=== PATIENT | female | born 1945 | race Caucasian/White ===

== ENCOUNTER 2019-03-28 18:37 | Observation (INO) ==
[2019-03-28] MEDS ORDERED: IOPAMIDOL 100 ML BOTTLE IV ONE (18:38)
--- NOTE | 2019-03-28 18:58 | Emergency Department Note ---
Altered Mental Status HPI - General Chief Complaint: Altered Mental Status Stated Complaint: altered mental status Time Seen by Provider: 03/28/19 18:44 Source: patient Mode of arrival: ambulatory Limitations: no limitations - History of Present Illness HPI Narrative: 73-year-old female with altered mental status today. Apparently last seen normal approximately week ago. Her son reports that she called him confused and so he made her come in. She denies any shortness of breath fever chills nausea vomiting diarrhea or any other concerning new features. She does have chronic pain from fiber mild which she treats with Tylenol threes. She did have a headache today and this did help. She did not bring her medicine list and does not remember all her medical conditions. She is able to affirm what I am able to glean from the chart - Related Data Home Medications Medication Instructions Recorded Confirmed Acetaminophen W/Codeine #3 1 - 2 tab PO BIDP PRN 09/04/15 09/04/15 [Tylenol #3] Atenolol [Tenormin] 100 mg PO DAILY 09/04/15 09/04/15 Calcium Carbonate [Calcium] 500 mg PO DAILY 09/04/15 09/04/15 Cholecalciferol (Vitamin D3) 1,000 unit PO DAILY 09/04/15 09/04/15 [Vitamin D] Multivit,Th Iron,Other Min 1 each PO DAILY 09/04/15 09/04/15 [Complete Multivitamin] Omeprazole [PriLOSEC] 20 mg PO ACB 09/04/15 09/04/15 Simvastatin [Zocor] 40 mg PO HS 09/04/15 09/04/15 Triazolam [Halcion] 0.125 mg PO QHS 09/04/15 09/04/15 Venlafaxine HCl [Venlafaxine HCl 225 mg PO DAILY 09/04/15 09/04/15 ER] Allergies Allergy/AdvReac Type Severity Reaction Status Date / Time No Known Drug Allergies Allergy Verified 09/04/15 13:39 Review of Systems All systems ED: reviewed and negative except as stated. Past Medical History - Past Medical History Attestation: Yes: The following information was validated with the patient. Medical history: Reports: fibromyalgia, hypertension, other (Ischemic colitis). Denies: DM Surgical history ED: Reports: hysterectomy - Social History smoking status: Never smoker Physical Exam Normocephalic atraumatic. Conjunctive are clear sclerae white and icteric. Pupils equal round reactive to light. no nasal discharge or congestion. Oropharynx pink and moist. Neck is supple without lymphadenopathy thyromegaly. Heart is regular rate and rhythm no murmur appreciated. Lungs are clear to auscultation bilaterally without wheezes rales rhonchi or respiratory distress. Abdomen soft nontender nondistended. No peritoneal signs or guarding. No pedal edema. +2 radial pulse. Alert oriented x4 able to answer questions appropriately. Mild short-term memory deficit is noted but otherwise seems to be relatively sharp-that is she seems to have some mild forgetfulness but otherwise seems to be functioning well. Face is symmetrical I do not see any other focal neurologic deficit. She is able to stand walk sit down and move around the bed without any assistance or difficulty. Her speech is coherent I do not see any evidence of ataxia Limitations: no limitations Course Vital Signs Temperature 97.5 F 03/28/19 18:39 Pulse Rate 55 L 03/28/19 18:39 Respiratory Rate 14 03/28/19 18:39 Blood Pressure 155/80 03/28/19 18:39 Pulse Oximetry (%) 98 03/28/19 18:39 Temperature 97.5 F 03/28/19 18:39 Pulse Rate 59 L 03/28/19 21:35 Respiratory Rate 15 03/28/19 21:35 Blood Pressure 146/84 03/28/19 21:31 Pulse Oximetry (%) 98 03/28/19 21:35 Altered Mental Status - Lab Data Lab results reviewed: Yes I reviewed the patient's lab results. Result diagrams: 03/28/19 19:46 03/28/19 19:18 Lab Results 03/28/19 03/28/19 03/28/19 Range/Units 18:19 18:19 18:55 WBC (4.5-11.0) K/mcL RBC (4.00-5.20) M/mcL Hgb (12.0-15.0) g/dL Hct (36.0-48.0) % POC Hct (36.0-48.0) % MCV (80.0-100.0) fL MCH (26.0-34.0) pg MCHC (31.0-36.0) g/dL RDW (11.5-14.5) % Plt Count (140-440) K/mcL MPV (7.4-10.4) fL Gran % (38.0-78.0) % Lymph % (Auto) (15.5-49.0) % [place] % (Auto) (1.0-12.0) % Eos % (Auto) (0.0-7.0) % Baso % (Auto) (0.0-2.0) % Gran # (1.8-8.0) K/mcL Lymph # (Auto) (1.5-4.8) K/mcL [place] # (Auto) (0.1-0.9) K/mcL Eos # (Auto) (0.0-0.7) K/mcL Baso # (Auto) (0.0-0.3) K/mcL POC PT 12.6 (11.9-14.5) sec POC INR 1.1 (0.9-1.2) VBG Lactic Acid (0.5-2.0) mmol/L POC Sodium (133-145) mmol/L Sodium (133-145) mmol/L POC Potassium (3.3-5.1) mmol/L Potassium (3.3-5.1) mmol/L POC Chloride (96-108) mmol/L Chloride (96-108) mmol/L Carbon Dioxide (22-30) mmol/L POC Total CO2 (22-30) mmol/L Anion Gap (8-16) POC BUN (8-23) mg/dl BUN (8-23) mg/dl Creatinine (0.6-1.1) mg/dl POC Creatinine (0.6-1.1) mg/dl GFR Calculation Glucose (70-105) mg/dL POC Glucose (70-105) mg/dL Calcium (8.6-10.4) mg/dl POC WB Ioniz Calcium (1.16-1.32) mmol/L Total Bilirubin (0.0-1.0) mg/dL AST (0-37) U/l ALT (0-40) U/l Alkaline Phosphatase (39-117) U/L Ammonia (11-51) umol/L Total Creatine Kinase 41 (24-170) IU/L Troponin T < 0.01 (0-0.03) ng/ml Total Protein (5.9-8.4) gm/dL Albumin (3.2-5.2) gm/dL Globulin (2.2-3.7) gm/dL Albumin/Globulin Ratio (1.0-2.3) Urine Opiates Screen (NONDETECTED) Ur Oxycodone Screen (NONDETECTED) Urine Methadone Screen (NONDETECTED) Ur Barbiturates Screen (NONDETECTED) Ur Phencyclidine Scrn (NONDETECTED) Ur Amphetamines Screen (NONDETECTED) U Benzodiazepines Scrn (NONDETECTED) Urine Cocaine Screen (NONDETECTED) U Marijuana (THC) Screen (NONDETECTED) 03/28/19 03/28/19 03/28/19 Range/Units 19:18 19:46 19:46 WBC 9.5 (4.5-11.0) K/mcL RBC 4.12 (4.00-5.20) M/mcL Hgb 12.7 (12.0-15.0) g/dL Hct 38.9 (36.0-48.0) % POC Hct 40.0 (36.0-48.0) % MCV 94.4 (80.0-100.0) fL MCH 30.8 (26.0-34.0) pg MCHC 32.7 (31.0-36.0) g/dL RDW 14.9 H (11.5-14.5) % Plt Count 272 (140-440) K/mcL MPV 8.2 (7.4-10.4) fL Gran % 57.9 (38.0-78.0) % Lymph % (Auto) 35.7 (15.5-49.0) % [place] % (Auto) 6.1 (1.0-12.0) % Eos % (Auto) 0 (0.0-7.0) % Baso % (Auto) 0.3 (0.0-2.0) % Gran # 5.5 (1.8-8.0) K/mcL Lymph # (Auto) 3.4 (1.5-4.8) K/mcL [place] # (Auto) 0.6 (0.1-0.9) K/mcL Eos # (Auto) 0 (0.0-0.7) K/mcL Baso # (Auto) 0 (0.0-0.3) K/mcL POC PT (11.9-14.5) sec POC INR (0.9-1.2) VBG Lactic Acid 1.2 (0.5-2.0) mmol/L POC Sodium 139 (133-145) mmol/L Sodium 139 (133-145) mmol/L POC Potassium 4.2 (3.3-5.1) mmol/L Potassium 4.3 (3.3-5.1) mmol/L POC Chloride 104 (96-108) mmol/L Chloride 101 (96-108) mmol/L Carbon Dioxide 23 (22-30) mmol/L POC Total CO2 27 (22-30) mmol/L Anion Gap 15.0 (8-16) POC BUN 16 (8-23) mg/dl BUN 15 (8-23) mg/dl Creatinine 0.7 (0.6-1.1) mg/dl POC Creatinine 0.6 (0.6-1.1) mg/dl GFR Calculation 85 Glucose 98 (70-105) mg/dL POC Glucose 98 (70-105) mg/dL Calcium 9.7 (8.6-10.4) mg/dl POC WB Ioniz Calcium 1.18 (1.16-1.32) mmol/L Total Bilirubin 0.2 (0.0-1.0) mg/dL AST 19 (0-37) U/l ALT 17 (0-40) U/l Alkaline Phosphatase 102 (39-117) U/L Ammonia (11-51) umol/L Total Creatine Kinase (24-170) IU/L Troponin T (0-0.03) ng/ml Total Protein 7.5 (5.9-8.4) gm/dL Albumin 4.0 (3.2-5.2) gm/dL Globulin 3.5 (2.2-3.7) gm/dL Albumin/Globulin Ratio 1.1 (1.0-2.3) Urine Opiates Screen (NONDETECTED) Ur Oxycodone Screen (NONDETECTED) Urine Methadone Screen (NONDETECTED) Ur Barbiturates Screen (NONDETECTED) Ur Phencyclidine Scrn (NONDETECTED) Ur Amphetamines Screen (NONDETECTED) U Benzodiazepines Scrn (NONDETECTED) Urine Cocaine Screen (NONDETECTED) U Marijuana (THC) Screen (NONDETECTED) 03/28/19 03/28/19 Range/Units 19:46 20:20 WBC (4.5-11.0) K/mcL RBC (4.00-5.20) M/mcL Hgb (12.0-15.0) g/dL Hct (36.0-48.0) % POC Hct (36.0-48.0) % MCV (80.0-100.0) fL MCH (26.0-34.0) pg MCHC (31.0-36.0) g/dL RDW (11.5-14.5) % Plt Count (140-440) K/mcL MPV (7.4-10.4) fL Gran % (38.0-78.0) % Lymph % (Auto) (15.5-49.0) % [place] % (Auto) (1.0-12.0) % Eos % (Auto) (0.0-7.0) % Baso % (Auto) (0.0-2.0) % Gran # (1.8-8.0) K/mcL Lymph # (Auto) (1.5-4.8) K/mcL [place] # (Auto) (0.1-0.9) K/mcL Eos # (Auto) (0.0-0.7) K/mcL Baso # (Auto) (0.0-0.3) K/mcL POC PT (11.9-14.5) sec POC INR (0.9-1.2) VBG Lactic Acid (0.5-2.0) mmol/L POC Sodium (133-145) mmol/L Sodium (133-145) mmol/L POC Potassium (3.3-5.1) mmol/L Potassium (3.3-5.1) mmol/L POC Chloride (96-108) mmol/L Chloride (96-108) mmol/L Carbon Dioxide (22-30) mmol/L POC Total CO2 (22-30) mmol/L Anion Gap (8-16) POC BUN (8-23) mg/dl BUN (8-23) mg/dl Creatinine (0.6-1.1) mg/dl POC Creatinine (0.6-1.1) mg/dl GFR Calculation Glucose (70-105) mg/dL POC Glucose (70-105) mg/dL Calcium (8.6-10.4) mg/dl POC WB Ioniz Calcium (1.16-1.32) mmol/L Total Bilirubin (0.0-1.0) mg/dL AST (0-37) U/l ALT (0-40) U/l Alkaline Phosphatase (39-117) U/L Ammonia 12 (11-51) umol/L Total Creatine Kinase (24-170) IU/L Troponin T (0-0.03) ng/ml Total Protein (5.9-8.4) gm/dL Albumin (3.2-5.2) gm/dL Globulin (2.2-3.7) gm/dL Albumin/Globulin Ratio (1.0-2.3) Urine Opiates Screen Suspect positive A (NONDETECTED) Ur Oxycodone Screen None detected (NONDETECTED) Urine Methadone Screen None detected (NONDETECTED) Ur Barbiturates Screen None detected (NONDETECTED) Ur Phencyclidine Scrn None detected (NONDETECTED) Ur Amphetamines Screen None detected (NONDETECTED) U Benzodiazepines Scrn None detected (NONDETECTED) Urine Cocaine Screen None detected (NONDETECTED) U Marijuana (THC) Screen None detected (NONDETECTED) - Radiology Data Radiology results reviewed: Yes I reviewed the patient's radiology results. Radiologist Brendon Mckeon called me with CT report on the head. It looks like she is has a subacute stroke in the MCA territory-likely from this morning or yesterday or similar timeframe Chest x-ray shows no acute cardiopulmonary pathology CT angiogram of the head neck shows an incidentally noted left thyroid nodule and again noted CVA in the right MCA territory - EKG Data EKG attestation: Yes I reviewed and interpreted this EKG. EKG results narrative: EKG shows rate of 57 so sinus bradycardia without evidence of ischemia. Borderline left axis deviation. Low voltage in the precordial leads EKG shows normal: sinus rhythm Critical Care Time Critical Care Time: Yes Total Critical Care Time: 30 Attestation: Additional 30 minutes of vehicle care time in addition to the evaluation and management code. This included coordination of care including tele-stroke, reviewing studies, documentation and serial exams. I did take the time to answer the patient and family's questions. I was immediately available to the patient the entire time she was in the ER Disposition Pt seen by ATTORNEY GENERAL/PA only: No Clinical Impression: Receptive aphasia, Left thyroid nodule Altered mental status Qualifiers: Altered mental status type: unspecified Qualified Code(s): R41.82 - Altered mental status, unspecified CVA (cerebral vascular accident) Qualifiers: CVA mechanism: thrombosis Precerebral and cerebral artery: middle cerebral artery Laterality of affected vessel: right Qualified Code(s): I63.311 - Cerebral infarction due to thrombosis of right middle cerebral artery Summary: Work-up for mild confusion and forgetfulness which is out of character. Patient was last seen normal 1 week ago so at this point would not be stroke work-up but will order testing including laboratory CT scan and chest x-ray along with an EKG EKG unrevealing. CT scan of the head shows subacute stroke in the MCA territory. We will do NIH testing. Patient is out of the window for TPA as she was last seen normal 1 week ago and the stroke on CT scan is clearly subacute i.e. from this morning or yesterday. However we will get tele-stroke involved a nd see if there is anything else we need to do for her I discussed the situation with Dr. Mei the tele-stroke neurologist who advised me to go ahead and get CT angiogram of the head neck to see if she would be eligible for any further intervention. Her NIH score is 0. However she does continue to have some receptive aphasia/decreased language comprehension. Oftentimes you will have to repeat commands several times in several different ways to get her to comply however once she gets it she will follow commands. CTA shows nonocclusive stasis on the right MCA area. Incidentally noted left thyroid nodule. I rediscussed the case with Dr. Mei, I reviewed the CTA of the head neck wi th him and he agreed the patient should be admitted but this could be done locally with stroke work-up. No further intervention is indicated I then discussed the case with Dr. De Leon, our hospitalist, who agreed to accept the patient for further care and evaluation in the hospital. Transition orders written Disposition: Xfer As Inpt ([facility]) Condition: Critical Referrals: Tiana Dunn MD [Primary Care Provider] -
[2019-03-28] MEDS ORDERED: 0.9 % SODIUM CHLORIDE 1,000 ML IV SCH ×2 (19:00→23:26)
[2019-03-28 19:25] LABS: POC Blood Urea Nitrogen 16 mg/dl (8-23); POC CO2 27 mmol/L (22-30); POC Calcium, Ionized 1.18 mmol/L (1.16-1.32); POC Chloride 104 mmol/L (96-108); POC Creatinine 0.6 mg/dl (0.6-1.1); POC Glucose, Random 98 mg/dL (70-105); POC Potassium 4.2 mmol/L (3.3-5.1); POC Sodium 139 mmol/L (133-145)
--- NOTE | 2019-03-28 20:10 | Cat Scan Report ---
CLINICAL INFORMATION: Altered mental status COMPARISON: None. TECHNIQUE: Axial noncontrast-enhanced images through the brain. Sagittal and coronal reformatted images FINDINGS: No acute intracranial hemorrhage. No subdural hematoma. No subarachnoid hemorrhage. No intra-axial hemorrhage. There is low density in the posterior middle cerebral artery distribution. There is mild mass effect with effacement of overlying sulci. Appearance is consistent with acute nonhemorrhagic infarction (one day to 1 week). Appearance is not consistent with hyperacute infarction. There is no uncal herniation. No transfalcine herniation. Left cerebral hemisphere is negative. Brainstem and cerebellum are negative. Basilar cisterns are normal. No hyperdense middle cerebral artery sign. There is a suggestion of increased density within a middle cerebral artery branch within the right sylvian fissure. This may be an occluded branch with intraluminal thrombus. IMPRESSION: 1. No acute intracranial hemorrhage 2. Acute nonhemorrhagic infarction in the posterior distribution of the right middle cerebral artery territory 3. Possible increased density within a right middle cerebral artery branch within the sylvian cistern The exam was performed using radiation dose optimization techniques including, but not limited to, automated exposure control, adjustment of the mA and/or kV according to patient size and use of iterative reconstruction technique. Interpreted and Authenticated by: Brendon Mckeon 03/28/19
--- NOTE | 2019-03-28 20:12 | XRay Report ---
INDICATION: Altered mental status TECHNIQUE: PA and lateral upright chest x-ray COMPARISON: None FINDINGS:Elevated right hemidiaphragm. Lungs are negative. No parenchymal infiltrate or mass. Heart size and vascularity are normal. Destiny and mediastinum are negative. There is no pleural fluid. IMPRESSION: 1. Elevated right hemidiaphragm 2. Otherwise negative PA and lateral chest x-ray Interpreted and Authenticated by: Brendon Mckeon 03/28/19
[2019-03-28 20:14] LABS: ALT/SGPT 17 U/l (0-40); AST/SGOT 19 U/l (0-37); Albumin/Globulin Ratio 1.1 (1.0-2.3); Alkaline Phosphatase 102 U/L (39-117); Bilirubin,Total 0.2 mg/dL (0.0-1.0); Blood Urea Nitrogen 15 mg/dl (8-23); Calcium 9.7 mg/dl (8.6-10.4); Carbon Dioxide 23 mmol/L (22-30); Chloride 101 mmol/L (96-108); Globulin 3.5 gm/dL (2.2-3.7); Glomerular Filtration Rate 85; Glucose 98 mg/dL (70-105); Potassium 4.3 mmol/L (3.3-5.1); Sodium 139 mmol/L (133-145)
[2019-03-28 20:23] LABS: POC INR 1.1 (0.9-1.2); POC Pro Time 12.6 sec (11.9-14.5)
[2019-03-28 20:42] LABS: Basophils # (Auto) 0 K/mcL (0.0-0.3); Basophils % (Auto) 0.3 % (0.0-2.0); Eosinophils # (Auto) 0 K/mcL (0.0-0.7); Eosinophils % (Auto) 0 % (0.0-7.0); Granulocytes % (Auto) 57.9 % (38.0-78.0); Hematocrit 38.9 % (36.0-48.0); Hemoglobin 12.7 g/dL (12.0-15.0); Lymphocytes # (Auto) 3.4 K/mcL (1.5-4.8); Lymphocytes % (Auto) 35.7 % (15.5-49.0); Mean Cell Volume 94.4 fL (80.0-100.0); Mean Corpuscular HGB Conc 32.7 g/dL (31.0-36.0); Mean Platelet Volume 8.2 fL (7.4-10.4); Monocytes # (Auto) 0.6 K/mcL (0.1-0.9); Monocytes % (Auto) 6.1 % (1.0-12.0); Platelet Count 272 K/mcL (140-440); RBC 4.12 M/mcL (4.00-5.20); Red Cell Distribution Width 14.9 % (11.5-14.5); WBC 9.5 K/mcL (4.5-11.0)
--- NOTE | 2019-03-28 21:04 | Cat Scan Report ---
CLINICAL INFORMATION: Right middle cerebral artery territory infarction TECHNIQUE: AML contrast and show injected intravenously. Routine CTA of the neck and brain. Sagittal and coronal reformatted images. MIP and CPR reformatted images COMPARISON: Noncontrast enhanced brain CT scan dated 03/28/2019 FINDINGS: Aortic arch is negative. No significant calcified or noncalcified plaque. Origin of the left subclavian artery, left common carotid artery, innominate artery, right common carotid artery, right subclavian artery are normal. No origin stenosis. Origin of the right vertebral artery is normal. Origin of the left vertebral artery is not well visualized. Right common carotid artery is slightly larger than the left common carotid artery. Right internal carotid artery is larger than the left internal carotid artery. 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 This is a normal variant. Carotid bifurcations are negative. No calcified or noncalcified plaque. There is no stenosis or ulceration. Cervical internal carotid arteries are normal. Petrous, cavernous, supraclinoid segments of the internal carotid arteries are normal bilaterally. M1 segments of the middle cerebral arteries are normal. The vertebral arteries are normal. There is no stenosis or occlusion. No dissection. Basilar artery is normal. Superior cerebellar arteries and posterior cerebral arteries are normal. No definite intracranial branch occlusion at this time. There appears to be mild vascular stasis in the posterior right middle cerebral artery branches. This is the area of nonhemorrhagic infarction. No other intracranial abnormality. There is no aneurysm. No arteriovenous malformation. Upper lungs are negative. No parenchymal infiltrate or mass. Mediastinum is negative. There are probable thyroid nodules in the left lobe of the thyroid. Routine follow-up thyroid ultrasound is recommended. Soft tissues of the neck are otherwise negative. No pathologic adenopathy. No solid or cystic mass. No mucosal abnormality. Multilevel degenerative disc disease in the cervical spine. IMPRESSION: 1. No significant atherosclerotic disease. Carotid bifurcations are negative. No stenosis. No ulceration. No soft or hard plaque. 2. Origins of the great vessels are normal. No origin stenosis 3. Probable mild stasis within the posterior right renal cerebral artery branches. This is the area of infarction. No intracranial branch occlusion. 4. Multilevel degenerative disc disease in the cervical spine 5. Left thyroid nodules. Recommend thyroid ultrasound Interpreted and Authenticated by: Brendon Mckeon 03/28/19
[2019-03-28 21:05] LABS: Amphetamine Screen,Urine NONE DETECTED (NONDETECTED); Barbiturate Screen,Urine NONE DETECTED (NONDETECTED); Benzodiazepines Screen,Urine NONE DETECTED (NONDETECTED); Cannabinoid Screen,Urine NONE DETECTED (NONDETECTED); Cocaine Screen,Urine NONE DETECTED (NONDETECTED); Opiate Screen,Urine SUSPECT POSITIVE (NONDETECTED); Oxycodone, Urine Screen NONE DETECTED (NONDETECTED); Phencyclidine Screen,Urine NONE DETECTED (NONDETECTED)
[2019-03-28] MEDS ORDERED: ASPIRIN 325 MG ENTERIC COATED TABLET PO ONE (21:39)
[2019-03-28] MEDS ORDERED: ASPIRIN 81 MG TAB.CHEW ONE (21:42)
--- NOTE | 2019-03-28 22:46 | Internal Med History&Physical ---
Medical - H&P: [facility] Patient information: Note initiated : 03/28/19 at 10:42 pm Service Date, if different from initiated Date: [] Patient: Mirlande Waite a 73 y/o F admitted on for altered mental status. Chief Complaint: [] History of present illness: Ms. Waite is a 73 year old F Who presents the ED with confusion. History obtained from family as well as patient. Earlier today her friend tried to call her at home and she did not answer until about the third time When she answered she sounded confused to the friend who then told the patient to call her son. Eventually she called her son but sounded confused on the phone to her son as well and she was saying things that did not make sense per the son. Including that she did not over the phone was but she had a right beside her. Her son went over to see her and he said she was not making any sense like she was not understanding what he was saying to her. Her speech was clear and not garbled but she seemed not to be old understanding. She was last seen normal a week ago. And the symptoms had been going on since at least a morning to early afternoon. She states that her first symptom was a right sided sharp headache which improved after she took her Tylenol codeine. She denies any recent illnesses. Her receptive aphasia has essentially resolved in ED. Patient does state she did feel confused earlier. CT in the ER showed a subacute right MCA territory infarct. The stroke was initiated. She did get a CTA of the head which showed a right MCA infarct territory. No other acute interventions and her symptoms continue to improve. Stroke neurologist recommended admission with stroke work-up. Recent medication change includes a change in her cholesterol medication for elevated lipid panel. She has not been on aspirin. Denies any recent illnesses. No numbness or tingling or focal weakness. Review of Systems: Pertinent positives as above. Denies fever/chills/nausea/vomiting/chest or abdominal pain/cough/dyspnea. Main 10 point review of system reviewed negative Medical - H&P: PMH Medical history: Past medical history: Medical history: Reports: fibromyalgia, hypertension, other (Ischemic colitis). Denies: DM Surgical history ED: Reports: hysterectomy Family history: Mother had diabetes father's history is unknown Social history: Patient denies tobacco alcohol ambulates independently and lives by herself Medical - H&P: Meds Home Medications Medication Instructions Recorded Confirmed Type Acetaminophen W/Codeine #3 1 - 2 tab PO BIDP PRN 09/04/15 09/04/15 History [Tylenol #3] Atenolol [Tenormin] 100 mg PO DAILY 09/04/15 09/04/15 History Calcium Carbonate [Calcium] 500 mg PO DAILY 09/04/15 09/04/15 History Cholecalciferol (Vitamin D3) 1,000 unit PO DAILY 09/04/15 09/04/15 History [Vitamin D] Multivit,Th Iron,Other Min 1 each PO DAILY 09/04/15 09/04/15 History [Complete Multivitamin] Omeprazole [PriLOSEC] 20 mg PO ACB 09/04/15 09/04/15 History Simvastatin [Zocor] 40 mg PO HS 09/04/15 09/04/15 History Triazolam [Halcion] 0.125 mg PO QHS 09/04/15 09/04/15 History Venlafaxine HCl [Venlafaxine HCl 225 mg PO DAILY 09/04/15 09/04/15 History ER] Allergies Allergy/AdvReac Type Severity Reaction Status Date / Time No Known Drug Allergies Allergy Verified 03/28/19 21:44 Medical - H&P: Exam - Constitutional Vitals: Temp Pulse Resp BP Pulse Ox 97.5 F 59 L 15 146/84 98 03/28/19 18:39 03/28/19 21:35 03/28/19 21:35 03/28/19 21:31 03/28/19 21:35 Exam: General: Alert, Awake, No acute Distress Eyes/N/T: EOMI, PEERL, DMM Head/Neck: neck supple, normocephalic atraumatic CV: RRR, No murmurs, normal s1/s2 Pulm: Clear b/l, no wheezing/rhonchi/rales Abd: soft, nontender, +BS x4 Ext: no clubbing/cyanosis/edema Neuro: Alert, speech clear at this time, comprehension intact face symmetrical, no pronator drift, symmetrical strength bilaterally upper lower and sensations intact bilateral lower, tongue midline skin: warm/dry Medical - H&P: Reslt - Labs CBC & Chem 7: 03/28/19 19:46 03/28/19 19:18 Labs: Short CBC 03/28/19 Range/Units 19:46 WBC 9.5 (4.5-11.0) K/mcL Hgb 12.7 (12.0-15.0) g/dL Hct 38.9 (36.0-48.0) % Plt Count 272 (140-440) K/mcL BMP 03/28/19 19:18 Sodium 139 Potassium 4.3 Chloride 101 Carbon Dioxide 23 BUN 15 Creatinine 0.7 Glucose 98 Calcium 9.7 Cardiac Enzymes 03/28/19 03/28/19 Range/Units 18:19 18:19 Total Creatine Kinase 41 (24-170) IU/L Troponin T < 0.01 (0-0.03) ng/ml Liver Function 03/28/19 Range/Units 19:18 Total Bilirubin 0.2 (0.0-1.0) mg/dL AST 19 (0-37) U/l ALT 17 (0-40) U/l Alkaline Phosphatase 102 (39-117) U/L Albumin 4.0 (3.2-5.2) gm/dL - Impressions CT brain with right MCA territory infarct. CTA neck unremarkable for significant stenosis. Medical - H&P: A/P - Narrative A/P Narrative: A: *Subacute CVA, right MCA territory, with receptive aphasia: Resolved in the ED -CT imaging showing MCA territory, CTA neck no carotid artery stenosis -ABCD=4 -EKG with sinus rhythm *HTN: *HLD: Recent switch from simvastatin to an alternative cholesterol medication for elevated lipid panel, unknown specified medication *Fibromyalgia: *GERD: *Depression: * P: -Permissive hypertension for the first 24 hours -Clarify home medications especially the new cholesterol medication she started -IVF's -Neurochecks -Telemetry monitoring -Echo pending -Lipid panel pending -Aspirin/statin daily - -ppx: Lovenox No Code
[2019-03-28] MEDS ORDERED: POTASSIUM CHLORIDE 20 MEQ/10 ML VIAL IV ONE (22:53)
[2019-03-28] MEDS ORDERED: METOCLOPRAMIDE 10 MG/2 ML VIAL IV PRN (23:26)
[2019-03-28] MEDS ORDERED: ACETAMINOPHEN W/CODEINE #3 1 TABLET PO PRN (23:26)
[2019-03-28] MEDS ORDERED: LABETALOL 5 MG/ML ML IV PRN (23:26)
[2019-03-28] MEDS ORDERED: HYDROcodone/APAP 5/325MG TABLET PO PRN (23:26)
[2019-03-28] MEDS ORDERED: POTASSIUM CHLORIDE 40 MEQ in DEXTROSE 5% IN WATER 500 ML IV PRN (23:26)
[2019-03-28] MEDS ORDERED: IPRATROPIUM/ALBUTEROL 3 ML AMPUL.NEB NEB PRN (23:26)
[2019-03-28] MEDS ORDERED: POLYETHYLENE GLYCOL 3350 17 GM PACKET PO PRN (23:26)
[2019-03-28] MEDS ORDERED: MAGNESIUM SULFATE 2 GM/50 ML BAG IV PRN (23:26)
[2019-03-28] MEDS ORDERED: PROCHLORPERAZINE 10 MG/2 ML VIAL IV PRN (23:26)
[2019-03-28] MEDS ORDERED: POTASSIUM CHLORIDE 20 MEQ TABLET PO PRN ×2 (23:26)
[2019-03-28] MEDS ORDERED: ONDANSETRON 4 MG/2 ML VIAL IV PRN (23:26)
[2019-03-29 00:37] LABS: Cholesterol 180 mg/dl (<200); HDL Cholesterol 51 mg/dl (>40); LDL Cholesterol,Calculated 77 mg/dl (SEE CHART); Non-HDL Cholesterol 129 (LDL TARGET+30); Triglycerides 262 mg/dl (<150)
[2019-03-29] MEDS: 0.9 % SODIUM CHLORIDE 10 ML SYRINGE IV SCH ×2 (05:18→16:26)
[2019-03-29 06:19] LABS: ALT/SGPT 16 U/l (0-40); AST/SGOT 18 U/l (0-37); Albumin 3.8 gm/dL (3.2-5.2); Albumin/Globulin Ratio 1.2 (1.0-2.3); Alkaline Phosphatase 93 U/L (39-117); Bilirubin,Direct < 0.2 mg/dL (0.0-0.3); Bilirubin,Total 0.3 mg/dL (0.0-1.0); Blood Urea Nitrogen 10 mg/dl (8-23); Calcium 8.9 mg/dl (8.6-10.4); Carbon Dioxide 23 mmol/L (22-30); Chloride 106 mmol/L (96-108); Globulin 3.2 gm/dL (2.2-3.7); Glomerular Filtration Rate 89; Glucose 87 mg/dL (70-105); Lactate Dehydrogenase 156 U/L (94-250); Phosphorous 2.3 mg/dL (2.7-4.5); Potassium 3.9 mmol/L (3.3-5.1); Sodium 143 mmol/L (133-145); Triglycerides 131 mg/dl (<150); Uric Acid 5.1 mg/dL (2.5-8.0)
--- NOTE | 2019-03-29 07:03 | Internal Med Progress Note ---
Medical - PN: Subj Patient information: Note initiated : 03/29/19 at 7:01 am Service Date, if different from initiated Date: [] Patient: Mirlande Waite 73 y/o F admitted on 03/28/19 for altered mental status. Chief Complaint: [] Interval history: Ms. Waite is a 73 year old F Who presents the ED with confusion. History obtained from family as well as patient. Earlier today her friend tried to call her at home and she did not answer until about the third time When she answered she sounded confused to the friend who then told the patient to call her son. Eventually she called her son but sounded confused on the phone to her son as well and she was saying things that did not make sense per the son. Including that she did not over the phone was but she had a right beside her. Her son went over to see her and he said she was not making any sense like she was not understanding what he was saying to her. Her speech was clear and not garbled but she seemed not to be old understanding. She was last seen normal a week ago. And the symptoms had been going on since at least a morning to early afternoon. She states that her first symptom was a right sided sharp headache which improved after she took her Tylenol codeine. She denies any recent illnesses. Her receptive aphasia has essentially resolved in ED. Patient does state she did feel confused earlier. CT in the ER showed a subacute right MCA territory infarct. The stroke was initiated. She did get a CTA of the head which showed a right MCA infarct territory. No other acute interventions and her symptoms continue to improve. Stroke neurologist recommended admission with stroke work-up. Recent medication change includes a change in her cholesterol medication for elevated lipid panel. She has not been on aspirin. Denies any recent illnesses. No numbness or tingling or focal weakness 7/8 Poor sleep but patient did not get her home sleeping aid as we did not have that on formulary. Otherwise no overnight events. NIH 0. Nausea with breakfast but otherwise no new complaints. Mild headache. Review of Systems: denies fever/chills/vomiting/chest or abdominal pain/cough/dyspnea/diarrhea. Otherwise see above. - Constitutional Vitals: Vital Signs Temp Pulse Resp BP Pulse Ox 99.4 F H 62 18 165/65 98 03/29/19 04:01 03/29/19 00:01 03/28/19 23:26 03/29/19 04:01 03/28/19 23:34 Period Temp Pulse Resp BP Sys/Carter Pulse Ox Last 24 Hr 97.5 F-99.8 F 55-72 13-21 119-180/60-132 82-100 Intake and Output 03/28/19 03/29/19 03/29/19 21:59 05:59 13:59 Intake Total 1000 Output Total 475 225 Balance 1000 -475 -225 Weight 90.718 kg 91.807 kg Intake & Output: Intake & Output 03/28/19 03/29/19 03/29/19 21:59 05:59 13:59 Intake Total 1000 Output Total 475 225 Balance 1000 -475 -225 Weight 90.718 kg 91.807 kg Intake: IV 1000 Sodium Chloride 0.9% 1,000 ml @ 1000 Wide Open IV .Q0M [facility] Rx#: [id number] Output: Void Amount 475 225 Exam: General: Alert, Awake, No acute Distress Eyes/N/T: EOMI, Head/Neck: neck supple, CV: RRR, No murmurs, Pulm: Clear b/l, no wheezing/rhonchi/rales Abd: soft, nontender, +BS x4 Ext: no clubbing/cyanosis, mild b/l LE edema Neuro: Alert, speech clear at this time, comprehension intact, face symmetrical, no focal weakness skin: warm/dry Medical - PN: Obj Da - Labs CBC & Chem 7: 03/28/19 19:46 03/29/19 03:43 Labs: Abnormal Lab Results 03/29/19 03/28/19 03/28/19 03:43 20:20 19:46 RDW 14.9 H Phosphorus 2.3 L Triglycerides Urine Opiates Screen Suspect positive A 03/28/19 19:18 RDW Phosphorus Triglycerides 262 H Urine Opiates Screen Meds: Medications Acetaminophen/Codeine Phosphate (Tylenol #3) 1 tab PO Q4HP PRN PRN Reason: PAIN LEVEL 3-6 Hydrocodone Bitart/Acetaminophen ([place] 5/325mg) 1 tab PO Q4HP PRN PRN Reason: PAIN LEVEL 3-6 Albuterol/Ipratropium (Duoneb) 3 ml NEB Q4HP PRN PRN Reason: Shortness Of Breath Aspirin (Aspirin) 81 mg PO DAILY [facility] Atorvastatin Calcium (Lipitor) 80 mg PO HS [facility] Enoxaparin Sodium (Lovenox) 40 mg SQ DAILY [facility] Famotidine (Pepcid) 20 mg PO BID [facility] Potassium Chloride 40 meq/ (Dextrose) 520 mls @ 130 mls/hr IV UD PRN PRN Reason: Potassium < 3 Magnesium Sulfate (Magnesium Sulfate) 2 gm in 50 mls @ 50 mls/hr IV UD PRN PRN Reason: Magnesium </= 1.6 Sodium Chloride (Sodium Chloride 0.9%) 1,000 mls @ 100 mls/hr IV .Q10H [facility] Stop: 03/29/19 09:25 Last Admin: 03/28/19 23:46 Dose: 100 mls/hr Documented by: Labetalol HCl (Trandate) 0 mg IV Q2HP PRN PRN Reason: Hypertension Metoclopramide HCl (Reglan) 10 mg IV Q6HP PRN PRN Reason: Nausea And Vomiting Ondansetron HCl (Zofran) 4 mg IV Q4HP PRN PRN Reason: Nausea And Vomiting Polyethylene Glycol (Miralax) 17 gm PO DAILYP PRN PRN Reason: Constipation Potassium Chloride (Kdur) 40 meq PO UD PRN PRN Reason: Potssium is 3-3.5 Potassium Chloride (Kdur) 40 meq PO UD PRN PRN Reason: Potassium < 3 Prochlorperazine (Compazine) 10 mg IV Q6HP PRN PRN Reason: Nausea And Vomiting Sodium Chloride (Saline Flush) 10 ml IV Q8 [facility] Last Admin: 03/29/19 05:18 Dose: Not Given Documented by: Medical - PN: A/P - Time Spent With Patient Total time spent is greater than 50% in coordination of care (as documented) at patient's floor/unit and/or counseling patient: - Narrative A/P Narrative: A: *Subacute CVA, right MCA territory, with receptive aphasia: Resolved in the ED -CT imaging showing MCA territory, CTA neck no carotid artery stenosis -ABCD=4 -EKG with sinus rhythm *HTN: takes atenolol *HLD: Recent switch from simvastatin to an alternative cholesterol medication for elevated lipid panel, unknown specified medication *Fibromyalgia: *GERD: *Depression: * P: -Permissive hypertension for the first 24 hours -Clarify home medications especially the new cholesterol medication she started -IVF's -Neurochecks -Telemetry monitoring -Echo pending -Aspirin/statin daily - -ppx: Lovenox No Code Medical - PN: Qual - Stroke Symptom Onset Unknown: No - VTE Deep Vein Thrombosis/Pulmonary Embolism Present on Admission: No
--- NOTE | 2019-03-29 07:05 | Discharge Summary ---
Medical - DS: Prov Patient information: Note initiated : 03/29/19 at 7:03 am Service Date, if different from initiated Date: [] Patient: Mirlande Waite 73 y/o F admitted on 03/28/19 for altered mental status. Chief Complaint: [] Date of admission: 03/28/19 23:14 Discharge date: 03/29/19 Primary care physician: Tiana Dnun Consults: 03/28/19 Consult to Physician [CONS] Stat Comment: Consulting Provider: Mal De Leon Reason For Exam: Physician to Consult Medical - DS: Meds - Discharge Medications Prescriptions: Ciprofloxacin [Cipro] 250 mg PO BID #6 tab Active and Home Medications: Home Medications Acetaminophen W/Codeine #3 [Tylenol #3] 1 - 2 tab PO BIDP PRN 09/04/15 [History Confirmed 03/29/19 Last Taken 03/28/19 14:00] Atenolol [Tenormin] 100 mg PO DAILY 09/04/15 [History Confirmed 03/29/19 Last Taken 03/28/19 09:00] Multivit,Th Iron,Other Min [Complete Multivitamin] 1 each PO DAILY 09/04/15 [History Confirmed 03/29/19 Last Taken 03/28/19 09:00] Simvastatin [Zocor] 40 mg PO HS 09/04/15 [History Confirmed 03/29/19 Last Taken 03/27/19 23:00] Triazolam [Halcion] 0.25 mg PO QHS 09/04/15 [History Confirmed 03/29/19 Last Taken 03/27/19 23:00] Acetaminophen W/Codeine #3 1 tab PO Q4HP PRN 03/29/19 [History Confirmed 03/29/19 Last Taken Unknown] Gabapentin [Neurontin] 300 mg PO QAM 03/29/19 [History Confirmed 03/29/19 Last Taken 03/28/19 09:00] Gabapentin [Neurontin] 600 mg PO QHS 03/29/19 [History Confirmed 03/29/19 Last Taken 03/27/19 23:00] Venlafaxine [Effexor] 150 mg PO BID 03/29/19 [History Confirmed 03/29/19 Last Taken 03/27/19 23:00] Home Medications Acetaminophen W/Codeine #3 [Tylenol #3] 1 - 2 tab PO QIDP PRN 09/04/15 [History Confirmed 03/29/19 Last Taken 03/28/19 14:00] Atenolol [Tenormin] 100 mg PO DAILY 09/04/15 [History Confirmed 03/29/19 Last Taken 03/28/19 09:00] Multivit,Th Iron,Other Min [Complete Multivitamin] 1 each PO DAILY 09/04/15 [History Confirmed 03/29/19 Last Taken 03/28/19 09:00] Triazolam [Halcion] 0.25 mg PO QHS 09/04/15 [History Confirmed 03/29/19 Last Taken 03/27/19 23:00] Aripiprazole [Abilify] 5 mg PO DAILY 03/29/19 [History Confirmed 03/29/19 Last Taken Unknown] Aspirin [Mk Chewable Aspirin] 81 mg PO DAILY 03/29/19 [History Confirmed 03/29/19 Last Taken Unknown] Ciprofloxacin [Cipro] 250 mg PO BID #6 tab 03/29/19 [Rx Last Taken Unknown] Gabapentin [Neurontin] 300 mg PO QAM 03/29/19 [History Confirmed 03/29/19 Last Taken 03/28/19 09:00] Gabapentin [Neurontin] 600 mg PO QHS 03/29/19 [History Confirmed 03/29/19 Last Taken 03/27/19 23:00] Rosuvastatin [Crestor] 10 mg PO DAILY 03/29/19 [History Confirmed 03/29/19 Last Taken Unknown] Venlafaxine [Effexor] 75 mg PO BID 03/29/19 [History Confirmed 03/29/19 Last Taken 03/27/19 23:00] Medical - DS: Hosp Hospital course: Mr. Waite is a 73 year old F Ms. Waite is a 73 year old F Who presents the ED with confusion. History obtained from family as well as patient. Earlier today her friend tried to call her at home and she did not answer until about the third time When she answered she sounded confused to the friend who then told the patient to call her son. Eventually she called her son but sounded confused on the phone to her son as well and she was saying things that did not make sense per the son. Including that she did not over the phone was but she had a right beside her. Her son went over to see her and he said she was not making any sense like she was not understanding what he was saying to her. Her speech was clear and not garbled but she seemed not to be old understanding. She was last seen normal a week ago. And the symptoms had been going on since at least a morning to early afternoon. She states that her first symptom was a right sided sharp headache which improved after she took her Tylenol codeine. She denies any recent illnesses. Her receptive aphasia has essentially resolved in ED. Patient does state she did feel confused earlier. CT in the ER showed a subacute right MCA territory infarct. The stroke was initiated. She did get a CTA of the head which showed a right MCA infarct territory. No other acute interventions and her symptoms continue to improve. Stroke neurologist recommended admission with stroke work-up. Recent medication change includes a change in her cholesterol medication for elevated lipid panel. She has not been on aspirin. Denies any recent illnesses. No numbness or tingling or focal weakness. 7/8 Poor sleep but patient did not get her home sleeping aid as we did not have that on formulary. Otherwise no overnight events. NIH 0. Nausea with breakfast but otherwise no new complaints. Mild headache. Worked well with physical therapy A: *Subacute CVA, right MCA territory, with receptive aphasia: Resolved in the ED -CT imaging showing MCA territory, CTA neck no carotid artery stenosis -ABCD=4 -EKG with sinus rhythm *HTN: takes atenolol *HLD: Recent switch from simvastatin to an alternative cholesterol medication for elevated lipid panel, unknown specified medication *Fibromyalgia: *GERD: *Depression: *UTI(GNB): P: -Permissive hypertension for the first 24 hours -Clarify home medications especially the new cholesterol medication she started -IVF's -Neurochecks -Telemetry monitoring -Echo pending -Aspirin/statin daily -rocephin pending UC -ppx: Lovenox No Code Discharge diagnosis: Subacute right hemispheric CVA UTI Secondary discharge diagnosis: Hypertension hyperlipidemia fibromyalgia GERD depression - Time Spent with Patient Total time spent providing and/or coordinating discharge services: Greater than 30 minutes Medical - DS: Exam - Constitutional Vitals: Vital Signs Temp Pulse Pulse Resp BP BP Pulse Ox 03/29/19 04:01 99.4 F H 165/65 03/29/19 03:01 158/60 03/29/19 02:01 157/100 03/29/19 01:01 155/78 03/29/19 00:01 99.8 F H 62 155/119 03/28/19 23:34 63 180/70 98 03/28/19 23:26 98.7 F 65 18 180/70 98 03/28/19 23:01 63 16 161/80 97 03/28/19 22:49 60 16 154/132 98 03/28/19 22:31 63 17 154/115 98 03/28/19 22:16 64 14 155/89 99 03/28/19 22:03 62 18 162/73 98 03/28/19 21:48 65 16 170/107 98 03/28/19 21:35 59 L 15 98 03/28/19 21:31 61 16 146/84 97 03/28/19 21:18 62 19 119/104 98 03/28/19 21:01 71 21 135/114 82 L 03/28/19 20:48 71 13 148/119 96 03/28/19 20:06 66 17 164/83 100 03/28/19 19:59 72 20 180/92 96 03/28/19 19:49 66 18 98 03/28/19 19:05 59 L 169/84 98 03/28/19 18:39 97.5 F 55 L 14 155/80 98 Intake and Output 03/28/19 03/29/19 03/29/19 21:59 05:59 13:59 Intake Total 1000 Output Total 475 225 Balance 1000 -475 -225 Intake: IV 1000 Sodium Chloride 0.9% 1,000 ml @ 1000 Wide Open IV .Q0M [facility] Rx#: [id number] Output: Void Amount 475 225 Other: Weight 90.718 kg 91.807 kg Medical - DS: Data Labs on day of discharge: Labs from last 24 hours 03/29/19 03/28/19 03/28/19 03:43 20:20 19:46 WBC RBC Hgb Hct POC Hct MCV MCH MCHC RDW Plt Count MPV Gran % Lymph % (Auto) [facility] % (Auto) Eos % (Auto) Baso % (Auto) Gran # Lymph # (Auto) [facility] # (Auto) Eos # (Auto) Baso # (Auto) POC PT POC INR VBG Lactic Acid POC Sodium Sodium 143 POC Potassium Potassium 3.9 POC Chloride Chloride 106 Carbon Dioxide 23 POC Total CO2 Anion Gap 14.0 POC BUN BUN 10 Creatinine 0.6 POC Creatinine GFR Calculation 89 Glucose 87 POC Glucose Uric Acid 5.1 Calcium 8.9 POC WB Ioniz Calcium Phosphorus 2.3 L Magnesium 2.0 Total Bilirubin 0.3 Direct Bilirubin < 0.2 GGT 29 AST 18 ALT 16 Alkaline Phosphatase 93 Ammonia 12 Lactate Dehydrogenase 156 Total Creatine Kinase Troponin T Total Protein 7.0 Albumin 3.8 Globulin 3.2 Albumin/Globulin Ratio 1.2 Triglycerides 131 Cholesterol LDL Cholesterol, Calc Non-HDL Cholesterol HDL Cholesterol Urine Opiates Screen Suspect positive A Ur Opiates Confirm Not Reportable Ur Oxycodone Screen None detected Urine Methadone Screen None detected Ur Methadone Confirm Not Reportable Ur Barbiturates Screen None detected Ur Barbiturate Confirm Not Reportable Ur Phencyclidine Scrn None detected Urine PCP Confirm Not Reportable Ur Amphetamines Screen None detected U Amphetamines Confirm Not Reportable U Benzodiazepines Scrn None detected U Benzodiazepine Confm Not Reportable Urine Cocaine Screen None detected Urine Cocaine Confirm Not Reportable U Cannabinoids Confirm Not Reportable U Marijuana (THC) Screen None detected 03/28/19 03/28/19 03/28/19 19:46 19:46 19:18 WBC 9.5 RBC 4.12 Hgb 12.7 Hct 38.9 POC Hct MCV 94.4 MCH 30.8 MCHC 32.7 RDW 14.9 H Plt Count 272 MPV 8.2 Gran % 57.9 Lymph % (Auto) 35.7 [facility] % (Auto) 6.1 Eos % (Auto) 0 Baso % (Auto) 0.3 Gran # 5.5 Lymph # (Auto) 3.4 [facility] # (Auto) 0.6 Eos # (Auto) 0 Baso # (Auto) 0 POC PT POC INR VBG Lactic Acid 1.2 POC Sodium Sodium POC Potassium Potassium POC Chloride Chloride Carbon Dioxide POC Total CO2 Anion Gap POC BUN BUN Creatinine POC Creatinine GFR Calculation Glucose POC Glucose Uric Acid Calcium POC WB Ioniz Calcium Phosphorus Magnesium Total Bilirubin Direct Bilirubin GGT AST ALT Alkaline Phosphatase Ammonia Lactate Dehydrogenase Total Creatine Kinase Troponin T Total Protein Albumin Globulin Albumin/Globulin Ratio Triglycerides 262 H Cholesterol 180 LDL Cholesterol, Calc 77 Non-HDL Cholesterol 129 HDL Cholesterol 51 Urine Opiates Screen Ur Opiates Confirm Ur Oxycodone Screen Urine Methadone Screen Ur Methadone Confirm Ur Barbiturates Screen Ur Barbiturate Confirm Ur Phencyclidine Scrn Urine PCP Confirm Ur Amphetamines Screen U Amphetamines Confirm U Benzodiazepines Scrn U Benzodiazepine Confm Urine Cocaine Screen Urine Cocaine Confirm U Cannabinoids Confirm U Marijuana (THC) Screen 03/28/19 03/28/19 03/28/19 19:18 18:55 18:19 WBC RBC Hgb Hct POC Hct 40.0 MCV MCH MCHC RDW Plt Count MPV Gran % Lymph % (Auto) [facility] % (Auto) Eos % (Auto) Baso % (Auto) Gran # Lymph # (Auto) [facility] # (Auto) Eos # (Auto) Baso # (Auto) POC PT 12.6 POC INR 1.1 VBG Lactic Acid POC Sodium 139 Sodium 139 POC Potassium 4.2 Potassium 4.3 POC Chloride 104 Chloride 101 Carbon Dioxide 23 POC Total CO2 27 Anion Gap 15.0 POC BUN 16 BUN 15 Creatinine 0.7 POC Creatinine 0.6 GFR Calculation 85 Glucose 98 POC Glucose 98 Uric Acid Calcium 9.7 POC WB Ioniz Calcium 1.18 Phosphorus Magnesium Total Bilirubin 0.2 Direct Bilirubin GGT AST 19 ALT 17 Alkaline Phosphatase 102 Ammonia Lactate Dehydrogenase Total Creatine Kinase Troponin T < 0.01 Total Protein 7.5 Albumin 4.0 Globulin 3.5 Albumin/Globulin Ratio 1.1 Triglycerides Cholesterol LDL Cholesterol, Calc Non-HDL Cholesterol HDL Cholesterol Urine Opiates Screen Ur Opiates Confirm Ur Oxycodone Screen Urine Methadone Screen Ur Methadone Confirm Ur Barbiturates Screen Ur Barbiturate Confirm Ur Phencyclidine Scrn Urine PCP Confirm Ur Amphetamines Screen U Amphetamines Confirm U Benzodiazepines Scrn U Benzodiazepine Confm Urine Cocaine Screen Urine Cocaine Confirm U Cannabinoids Confirm U Marijuana (THC) Screen 03/28/19 18:19 WBC RBC Hgb Hct POC Hct MCV MCH MCHC RDW Plt Count MPV Gran % Lymph % (Auto) [facility] % (Auto) Eos % (Auto) Baso % (Auto) Gran # Lymph # (Auto) [facility] # (Auto) Eos # (Auto) Baso # (Auto) POC PT POC INR VBG Lactic Acid POC Sodium Sodium POC Potassium Potassium POC Chloride Chloride Carbon Dioxide POC Total CO2 Anion Gap POC BUN BUN Creatinine POC Creatinine GFR Calculation Glucose POC Glucose Uric Acid Calcium POC WB Ioniz Calcium Phosphorus Magnesium Total Bilirubin Direct Bilirubin GGT AST ALT Alkaline Phosphatase Ammonia Lactate Dehydrogenase Total Creatine Kinase 41 Troponin T Total Protein Albumin Globulin Albumin/Globulin Ratio Triglycerides Cholesterol LDL Cholesterol, Calc Non-HDL Cholesterol HDL Cholesterol Urine Opiates Screen Ur Opiates Confirm Ur Oxycodone Screen Urine Methadone Screen Ur Methadone Confirm Ur Barbiturates Screen Ur Barbiturate Confirm Ur Phencyclidine Scrn Urine PCP Confirm Ur Amphetamines Screen U Amphetamines Confirm U Benzodiazepines Scrn U Benzodiazepine Confm Urine Cocaine Screen Urine Cocaine Confirm U Cannabinoids Confirm U Marijuana (THC) Screen Medical - DS: A/P - Patient/Caregiver Discharge Instructions Activity: increase activity as tolerated Diet: Cardiac Prescriptions: Ciprofloxacin [Cipro] 250 mg PO BID #6 tab - Follow up Plan Follow up with: Tiana Dunn MD [Primary Care Provider] - Disposition: Home Health Service Prognosis: Fair Rehab Potential: Fair Overall status at discharge: patient is back to baseline Medical - DS: Qual - VTE Deep Vein Thrombosis/Pulmonary Embolism Present on Admission: No
[2019-03-29] MEDS ORDERED: ENOXAPARIN 40 MG/0.4 ML SYRINGE SQ SCH (09:00)
[2019-03-29] MEDS ORDERED: FAMOTIDINE 20 MG TABLET PO SCH (09:00)
[2019-03-29] MEDS ORDERED: ATENOLOL 50 MG TABLET PO SCH (09:00)
[2019-03-29] MEDS ORDERED: GABAPENTIN 300 MG CAPSULE PO SCH ×2 (09:00→21:00)
[2019-03-29] MEDS ORDERED: VENLAFAXINE 75 MG TABLET PO SCH ×2 (09:00→09:59)
[2019-03-29] MEDS ORDERED: ASPIRIN 81 MG TAB.CHEW PO SCH (09:00)
[2019-03-29] MEDS ORDERED: cefTRIAXone 1 GM VIAL IV SCH (11:00)
[2019-03-29] MEDS ORDERED: ATORVASTATIN 20 MG TABLET PO SCH (21:00)
[2019-03-29] MEDS ORDERED: TRIAZOLAM 0.25 MG PO SCH (21:00)
[2019-03-29] MEDS ORDERED: TEMAZEPAM 15 MG CAPSULE PO PRN (21:00)
[2019-04-01 08:08] LABS: Opiate Confirmation POSITIVE (N)
== END 2019-03-29 16:16 | disposition home health service (06) ==
LOC: ED 18:37 → ICU 18:37
PROVIDERS: ADMIT Internal Medicine; ATTEND Internal Medicine